=== PATIENT | male | born 1985 | race Hispanic/Latino ===

== ENCOUNTER 2022-09-21 09:48 | Outpatient (CLI) | payer OTHER | END 2022-09-21 09:49 | disposition home or self-care (01) | LOC: CSHMRI 09:48 | PROVIDERS: ATTEND Internal Medicine Hematology & Oncology | DX: R42 Dizziness and giddiness (principal); R55 Syncope and collapse; Q28.3 Other malformations of cerebral vessels | CPT/HCPCS: 70553 ==